=== PATIENT | female | born 1970 | race Hispanic/Latino ===

== ENCOUNTER 2019-05-15 01:57 | Emergency (ER) | payer OTHER ==
[2019-05-15 02:07] VITALS: BP 125/70
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
== END 2019-05-15 05:56 | disposition home or self-care (01) ==
LOC: ED 01:57
DX: S30.1XXA Contusion of abdominal wall, initial encounter (principal); R07.81 Pleurodynia; J45.909 Unspecified asthma, uncomplicated; W34.09XA Accidental discharge from other specified firearms, initial encounter; Y93.89 Activity, other specified; Y92.89 Other specified places as the place of occurrence of the external cause; Y99.8 Other external cause status
CPT/HCPCS: 74019; 99283